=== PATIENT | female | born 1955 | race Caucasian/White ===

== ENCOUNTER → 2016-05-13 | Day surgery (SDC) | payer OTHER ==
[~2016-05-13] MED LIST: Bacitracin/Neomycin/Polymyxin B Oint 0.9 GM U/D Packet ONE; Bacitracin/Neomycin/Polymyxin B Oint 28.4 GM Tube ONE; Bupivacaine 0.5%/EPINEPHrine 1:200,000 30 ML SDV ONE; Dexamethasone 4 MG/ML SDV ONE; Glycopyrrolate 0.2 MG/ML 5 ML MDV ONE; Ketorolac 30 MG/ML SDV ONE; Lactated Ringers 1,000 ML IV SCH; Lactated Ringers 1,000 ML ONE; Midazolam 1 MG/ML 2 ML SDV ONE; Neostigmine Methylsulfate 10 MG/10 ML MDV ONE; Ondansetron 4 MG/2 ML SDV ONE; Propofol 200 MG/20 ML SDV ONE; Rocuronium 50 MG/5 ML Vial ONE; Scopolamine 1.5 MG Transdermal Patch ONE; Sodium Chloride 0.9% 5 ML Syringe FLUSH PRN; Succinylcholine 200 MG/10 ML MDV ONE; ceFAZolin 1 GM Vial ONE; fentaNYL 250 MCG/5 ML SDV ONE
--- NOTE | 2016-05-13 13:19 | PCM.OPNOTE ---
- General Post-Op/Procedure Note Date of Surgery/Procedure: 05/13/16 Operative Procedure(s): Cystocele repair Findings: Moderate cystocele and Urethrocoelewere found. Pre Op Diagnosis: Moderate cystocele and urethrocele. Anesthesia Technique: General ET tube Primary Surgeon: Tracy Pinto Complications: None Condition: Good Free Text/Narrative:: Preoperative diagnosis: Moderate Cystourethrocele, symptomatic. Patient has been having pelvic pain and slight difficulty with the initiation of urination. Postoperative diagnosis: As above. Procedure performed: Cystourethrocele repair Informed consent was obtained from the patient regarding this procedure. All possible complications were thoroughly discussed. These include infection, pain , bleeding ,narrowing at the vaginal introitus, failure of the surgery to correct the problem, dyspareunia and other unknown complications. Despite the complications, the patient decided to proceed. She was taken to the operating room where she was anesthetized by means of a general anesthetic. After that she was kept in the lithotomy position. Her genitals were prepped and draped in the usual fashion. A bimanual examination revealed an absent uterus and a moderate cystourethrocele. Mild rectocele present. A weighted speculum was placed in the posterior vaginal wall. The bladder was completely emptied using a catheter. The anterior surface of the vaginal wall was infiltrated with Marcaine solution1% with epinephrine. A vertical incision was made on the vaginal mucosa and the bladder was dissected off the vaginal mucosa extending from the urethra down to the end of the cystocele. The prevesical fascia was not very well defined. We then excised the extra vaginal mucosa on both sides. We approximated her irregular prevesical fascia in the middle with several interrupted sutures of 0 Polysorb. Good approximation was obtained. The bladder was well supported. Care was taken not to enter the urethra or the bladder. The vaginal mucosa was then closed using continuous 0 Vicryl suture. A catheter was placed the bladder. Clear urine was drained out. The catheter was left in place. A sterile Vaseline pack was also placed in the vagina. This will be removed prior to discharge. The patient tolerated the procedure. Blood loss was negligible. No operative complications were encountered. Sponge, needle and instrument count were correct. She was transferred to the recovery room in an excellent condition.
[2016-05-13 19:28] VITALS: BP 108/67
== END | disposition home or self-care (01) ==
LOC: KA.SDS 08:41
PROVIDERS: ATTEND Family Medicine
DX: N81.10 Cystocele, unspecified (principal); E78.2 Mixed hyperlipidemia; J45.20 Mild intermittent asthma, uncomplicated; Z90.49 Acquired absence of other specified parts of digestive tract; Z90.710 Acquired absence of both cervix and uterus; Z98.890 Other specified postprocedural states; Z88.1 Allergy status to other antibiotic agents; Z79.899 Other long term (current) drug therapy
CPT/HCPCS: 57240; A9270; J0330; J0690; J1100; J1885; J2250; J2405; J2704; J2710; J3010; J7120; J3490

== ENCOUNTER 2016-09-18 09:51 | Day surgery (SDC) | payer OTHER ==
[2016-09-18] MEDS ORDERED: Lactated Ringers 1,000 ML IV SCH (10:00)
[2016-09-18] MEDS ORDERED: Sodium Chloride 0.9% 5 ML Syringe FLUSH PRN (10:00)
[2016-09-18] MEDS ORDERED: fentaNYL 100 MCG/2 ML SDV ONE (10:29)
[2016-09-18] MEDS ORDERED: Midazolam 1 MG/ML 2 ML SDV ONE (10:29)
[2016-09-18] MEDS ORDERED: Propofol 200 MG/20 ML SDV ONE ×2 (10:29→10:54)
[2016-09-18] MEDS ORDERED: fentaNYL 100 MCG/2 ML SDV IV ONE (11:30)
[2016-09-18] MEDS ORDERED: Midazolam 1 MG/ML 2 ML SDV IV ONE (11:30)
[2016-09-18] MEDS ORDERED: Propofol 200 MG/20 ML SDV IV ONE (11:30)
[2016-09-18 14:47] VITALS: BP 110/60
--- NOTE | 2016-09-24 16:59 | PCM.OPNOTE ---
- General Post-Op/Procedure Note Date of Surgery/Procedure: 09/18/16 Operative Procedure(s): Colonoscopy. Pre Op Diagnosis: Rectal bleeding and screening Post-Op Diagnosis: Normal colonoscopy. Anesthesia Technique: MAC Primary Surgeon: Tracy Pinto Complications: None Condition: Good Free Text/Narrative:: Preoperative diagnosis: Abdominal pain and rectal bleeding. Screening colonoscopy. Postoperative diagnosis: As above Procedure performed: Colonoscopy Informed consent was obtained from the patient regarding this procedure. All possible complications were thoroughly discussed including the possible to perforation. Continuous EKG, oximetry monitoring and intermittent blood pressure and respiratory monitoring were performed throughout the procedure. The patient was given a Mac anesthesia. An Olympus video colonoscope was introduced in the rectum and advanced slowly all the way to the ileocecal junction. As the scope was withdrawn a careful examination of the colonic mucosa was performed. No abnormalities were discovered. There was no evidence of polyps, AV malformations, obstruction or malignancy. The patient tolerated procedure well. There were no operative complications. She was returned to the recovery room in excellent condition.
== END 2016-09-18 14:02 | disposition home or self-care (01) ==
LOC: KA.SDS 09:51
PROVIDERS: ATTEND Family Medicine
DX: Z12.11 Encounter for screening for malignant neoplasm of colon (principal); J45.20 Mild intermittent asthma, uncomplicated; K21.9 Gastro-esophageal reflux disease without esophagitis; E78.2 Mixed hyperlipidemia; Z88.1 Allergy status to other antibiotic agents; Z79.899 Other long term (current) drug therapy; Z90.710 Acquired absence of both cervix and uterus; Z98.890 Other specified postprocedural states; Z90.49 Acquired absence of other specified parts of digestive tract
CPT/HCPCS: 45378; J2250; J2704; J3010; J7120

== ENCOUNTER 2018-09-27 22:22 | Emergency (ER) | payer OTHER ==
--- NOTE | 2018-09-27 22:44 | EDM.PDOC ---
ED HPI GENERAL MEDICAL PROBLEM - General Chief Complaint: Back Pain or Injury Stated Complaint: lower back pain/nausea Time Seen by Provider: 09/27/18 22:37 Source of Information: Reports: Patient History Limitations: Reports: No Limitations - History of Present Illness INITIAL COMMENTS - FREE TEXT/NARRATIVE: While horseback riding this afternoon, fell from a horse landing on back striking large dirt lump or possible flat rock to the lumbar region. Was able to get back up and ride the horse seated in saddle back to the trailer, load horse, and drive home. She had increased swelling and pain to the area radiating to the left buttock. 800 mg ibuprofen was taken early evening. In route to the hospital experienced increased nausea and emesis 1. Denies nausea/emesis while laying supine Is mildly hypotensive in comparison to normal range blood pressures historically noted. Denies striking head nor any loss of consciousness but questions "whiplash effect". Mild pain to the paraspinal muscles on palpation examination. Denies any other areas of pain or stiffness. 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: NSAIDS lower back Pain Score (Numeric/FACES): 2 - Related Data Allergies Allergy/AdvReac Type Severity Reaction Status Date / Time doxycycline calcium Allergy itchy Verified 09/27/18 22:26 [From Vibramycin] doxycycline hyclate Allergy itchy Verified 09/27/18 22:26 [From Vibramycin] doxycycline monohydrate Allergy itchy Verified 09/27/18 22:26 [From Vibramycin] Home Meds: Home Meds Omeprazole 20 mg PO DAILY PRN 03/03/13 [History] Cetirizine [ZyrTEC] 10 mg PO DAILY 09/03/16 [History] Hydrocortisone [Anusol-Hc] 30 gm TP DAILY PRN 09/03/16 [History] Fluticasone/Salmeterol [Advair 250-50 Diskus] 1 puff INH DAILY PRN 09/27/18 [ History] Ketorolac [Toradol] 10 mg PO TID PRN 5 Days #15 tab 09/28/18 [Rx] Past Medical History Cardiovascular History: Reports: None Respiratory History: Reports: Asthma Gastrointestinal History: Reports: None Genitourinary History: Reports: None Musculoskeletal History: Reports: None Neurological History: Reports: None Psychiatric History: Reports: None Endocrine/Metabolic History: Reports: None Hematologic History: Reports: None - Past Surgical History HEENT Surgical History: Reports: None Cardiovascular Surgical History: Reports: None Respiratory Surgical History: Reports: None GI Surgical History: Reports: Appendectomy, Cholecystectomy Female Surgical History: Reports: Hysterectomy Neurological Surgical History: Reports: None Musculoskeletal Surgical History: Reports: None Other Musculoskeletal Surgeries/Procedures:: fx with surgery to R arm 2013 Oncologic Surgical History: Reports: None Dermatological Surgical History: Reports: None Social & Family History - Family History Family Medical History: Noncontributory - Caffeine Use Caffeine Use: Reports: Soda - Living Situation & Occupation Living situation: Reports: , with Spouse ED ROS GENERAL - Review of Systems Review Of Systems: See Below Constitutional: Reports: No Symptoms HEENT: Reports: No Symptoms Respiratory: Reports: No Symptoms Cardiovascular: Reports: No Symptoms Endocrine: Reports: No Symptoms GI/Abdominal: Reports: Nausea : Reports: No Symptoms Musculoskeletal: Reports: Neck Pain, Back Pain, Muscle Stiffness Skin: Reports: Bruising (Left buttock, left sacral region) Neurological: Reports: No Symptoms Psychiatric: Reports: No Symptoms Hematologic/Lymphatic: Reports: No Symptoms Immunologic: Reports: No Symptoms ED EXAM,LOWER BACK PAIN/INJURY - Physical Exam Exam: See Below Exam Limited By: No Limitations General Appearance: Alert, WD/WN, No Apparent Distress Ears: Normal External Exam (Negative for hemotympanum), Normal Canal, Hearing Grossly Normal, Normal TMs Nose: Normal Inspection, Normal Mucosa, No Blood Throat/Mouth: Normal Inspection, Normal Lips, Normal Teeth, Normal Gums, Normal Oropharynx, Normal Voice, No Airway Compromise Head: Atraumatic, Normocephalic Neck: Normal Inspection, Supple, Full Range of Motion, Tender Lateral ( Bilateral musculature paraspinal muscles) Respiratory/Chest: No Respiratory Distress, Lungs Clear, Normal Breath Sounds, No Accessory Muscle Use, Chest Non-Tender Cardiovascular: Normal Peripheral Pulses, Regular Rate, Rhythm, No Edema, No Murmur, No Rub GI/Abdominal: Normal Bowel Sounds, Soft, Non-Tender, No Organomegaly, No Distention, No Abnormal Bruit, No Mass. No: Distended, Rigid, Tender (Female) Exam: Deferred Rectal (Female) Exam: Deferred Back Exam: Muscle Spasm. No: CVA Tenderness (L), CVA Tenderness (R) Extremities: Normal Inspection, No Pedal Edema Neurological: Alert, Normal Mood/Affect, Normal Dorsiflexion, Normal Plantar Flexion Psychiatric: Normal Affect, Normal Mood Skin Exam: Warm, Dry, Ecchymosis (Left buttock, sacral region) Lymphatic: No Adenopathy Course - Vital Signs Last Recorded V/S: Last Vital Signs Temp 36.2 C 09/27/18 22:30 Pulse 61 09/28/18 00:28 Resp 14 09/28/18 00:28 BP 90/34 L 09/28/18 00:28 Pulse Ox 96 09/28/18 00:28 - Orders/Labs/Meds Orders: Active Orders 24 hr Category Date Time Status Lumbar Spine 2 or 3V [CR] Stat Exams 09/27/18 22:46 Ordered Sodium Chloride 0.9% [Normal Saline] 1,000 ml Med 09/28/18 00:13 Active IV .BOLUS Medication Orders Sodium Chloride (Normal Saline) 1,000 mls @ 999 mls/hr IV .BOLUS ONE Stop: 09/28/18 01:13 Last Admin: 09/28/18 00:20 Dose: 999 mls/hr Labs: Laboratory Tests 09/27/18 09/27/18 09/27/18 Range/Units 23:10 23:10 23:52 WBC 10.06 H (5.00-10.00) 10^3/uL RBC 3.69 L (3.80-5.50) 10^6/uL Hgb 11.6 L (12.0-16.0) g/dL Hct 33.6 L (37.0-47.0) % MCV 91.1 (82.0-92.0) fL MCH 31.4 H (27.0-31.0) pg MCHC 34.5 (32.0-36.0) g/dL RDW 12.8 (11.5-14.5) % Plt Count 298 (150-400) 10^3/uL MPV 10.2 (7.4-10.4) fL Immature Gran % (Auto) 0.1 (0.0-5.0) % Neut % (Auto) 77.5 H (50.0-70.0) % Lymph % (Auto) 13.7 L (20.0-40.0) % [place] % (Auto) 5.9 (2.0-8.0) % Eos % (Auto) 2.3 (1.0-3.0) % Baso % (Auto) 0.5 (0.0-1.0) % Immature Gran # (Auto) 0.01 (0.00-0.50) 10^3/uL Neut # (Auto) 7.80 H (2.50-7.00) 10^3/uL Lymph # (Auto) 1.38 (1.00-4.00) 10^3/uL [place] # (Auto) 0.59 (0.10-0.80) 10^3/uL Eos # (Auto) 0.23 (0.10-0.30) 10^3/uL Baso # (Auto) 0.05 (0.00-0.10) 10^3/uL Sodium 138 (136-145) mmol/L Potassium 4.7 (3.3-5.3) mmol/L Chloride 104 (98-115) mmol/L Carbon Dioxide 23.7 (21.0-32.0) mmol/L Anion Gap 15.0 (5-15) mmol/L BUN 20 (6-25) mg/dL Creatinine 0.72 (0.51-1.17) mg/dL Est Cr Clr Drug Dosing 73.42 mL/min Estimated GFR (MDRD) > 60 mL/min Glucose 150 H (75 - 99) mg/dL Calcium 8.8 (8.7-10.3) mg/dL Specimen Type Urincc Urine Color Yellow (YELLOW) Urine Appearance Clear (CLEAR) Urine pH 5.5 (5.0-9.0) Ur Specific [place] >= 1.030 (1.005-1.030) Urine Protein Negative (NEGATIVE) mg/dL Urine Glucose (UA) Negative (NEGATIVE) mg/dL Urine Ketones Negative (NEGATIVE) mg/dL Urine Occult Blood Negative (NEGATIVE) Urine Nitrite Negative (NEGATIVE) Urine Bilirubin Negative (NEGATIVE) Urine Urobilinogen 0.2 (0.2-1.0) E.U./dL Ur Leukocyte Esterase Trace H (NEGATIVE) Urine RBC 5-10 H (0-5) /HPF Urine WBC 5-10 H (0-5) /HPF Ur Epithelial Cells Many H /LPF Urine Bacteria Rare (NONE TO FEW) /HPF Hyaline Casts Moderate H (NEGATIVE) /LPF Urine Mucus Many H (NEGATIVE) /LPF Meds: Medications Generic Name Dose Route Start Last Admin Trade Name Freq PRN Reason Stop Dose Admin Sodium Chloride 1,000 mls @ 999 mls/hr 09/28/18 00:13 09/28/18 00:20 Normal Saline IV 09/28/18 01:13 999 mls/hr .BOLUS ONE Administration Discontinued Medications Generic Name Dose Route Start Last Admin Trade Name Freq PRN Reason Stop Dose Admin Ondansetron HCl 4 mg 09/27/18 23:23 09/27/18 23:27 Zofran IVPUSH 09/27/18 23:24 4 mg ONETIME ONE Administration Ondansetron HCl 4 mg 09/27/18 23:23 09/27/18 23:24 Zofran IVPUSH 09/27/18 23:24 Not Given ONETIME ONE - Radiology Interpretation Free Text/Narrative:: 3 views lumbar spine. I do not see any obvious fracture nor dislocation with mild arthritic changes. Over read pending read official report reviewed and discussed with Apryl and her . No acute fracture nor dislocation. Spondylosis without acute abnormality official impression Mild osteopenia. Grade 1 maico listhesis of L5 on S1 secondary to bilateral pars defect chronic in nature Mild degenerative dextroscoliosis apex at L3 Diffuse spondylitic changes with diffuse disc space narrowing, osteophyte formation and degenerative endplate sclerosis. Diffuse facet joint arthropathy with secondary bilateral neural foramina narrowing. No fracture or dislocation is seen. No aggressive lytic or blastic bony lesion is noted. Metallic clips right upper quadrant prior cholecystectomy. Impression: spondylosis without acute abnormality - Re-Assessments/Exams Free Text/Narrative Re-Assessment/Exam: 09/27/18 23:37 Mild nausea improved with IV Zofran Free Text/Narrative Re-Assessment/Exam: 09/28/18 00:31 Mild nausea with repeat hypotension monitored pain same. Laboratory analysis reviewed showing significant concentration to urine with acknowledgment of poor water intake the past 24-48 hours. We'll infuse normal saline 1000 mL and reassess 09/28/18 00:54 Fluid infusing 450ml slight pain to buttock region stated. No/minimal nausea, No other complaints of pain. Heart sounds S1-S2 no noted murmur, Breath sounds remain clear, abd soft. Departure - Departure Time of Disposition: 01:48 Disposition: Home, Self-Care 01 Condition: Good Clinical Impression: Lumbar contusion, Nausea, Fall from horse, Dehydration symptoms, Abnormal urine findings, Cervical paraspinous muscle spasm - Discharge Information *PRESCRIPTION DRUG MONITORING PROGRAM REVIEWED*: Not Applicable *COPY OF PRESCRIPTION DRUG MONITORING REPORT IN PATIENT LUPIS: Not Applicable Forms: ED Department Discharge - Problem List & Annotations (1) Sacral contusion SNOMED Code(s): 461205321 Code(s): S30.0XXA - CONTUSION OF LOWER BACK AND PELVIS, INITIAL ENCOUNTER Status: Acute Priority: High Onset Date: ~09/27/18 Qualifiers: Encounter type: initial encounter Qualified Code(s): S30.0XXA - Contusion of lower back and pelvis, initial encounter (2) Lumbar contusion SNOMED Code(s): 860807290 Code(s): S30.0XXA - CONTUSION OF LOWER BACK AND PELVIS, INITIAL ENCOUNTER Status: Acute Priority: High Onset Date: ~09/27/18 Qualifiers: Encounter type: initial encounter Qualified Code(s): S30.0XXA - Contusion of lower back and pelvis, initial encounter (3) Nausea SNOMED Code(s): 675110359 Code(s): R11.0 - NAUSEA Status: Acute Priority: Medium Onset Date: ~ (4) Cervical paraspinous muscle spasm SNOMED Code(s): 854040671 Code(s): M62.838 - OTHER MUSCLE SPASM Status: Acute Priority: Medium Onset Date: ~09/27/18 (5) Dehydration symptoms SNOMED Code(s): 4713346 Code(s): R63.8 - OTHER SYMPTOMS AND SIGNS CONCERNING FOOD AND FLUID INTAKE Status: Acute Priority: Medium Onset Date: ~09/28/18 (6) Abnormal urine findings SNOMED Code(s): 415848053 Code(s): R82.90 - UNSPECIFIED ABNORMAL FINDINGS IN URINE Status: Acute Priority: Medium Onset Date: ~09/28/18 Annotation/Comment:: Concentration with hyleen casts. Elevated specific gravity (7) Fall from horse SNOMED Code(s): 855366614 Code(s): V80.010A - ANIML-RIDR INJURED BY FALL FR HORSE IN NONCLSN ACC, INIT Status: Acute Priority: High Qualifiers: Encounter type: initial encounter Qualified Code(s): V80.010A - Animal- rider injured by fall from or being thrown from horse in noncollision accident, initial encounter - Problem List Review Problem List Initiated/Reviewed/Updated: Yes - My Orders Last 24 Hours: My Active Orders 09/27/18 22:46 Lumbar Spine 2 or 3V [CR] Stat 09/28/18 00:13 Sodium Chloride 0.9% [Normal Saline] 1,000 ml IV .BOLUS - Assessment/Plan Last 24 Hours: My Active Orders 09/27/18 22:46 Lumbar Spine 2 or 3V [CR] Stat 09/28/18 00:13 Sodium Chloride 0.9% [Normal Saline] 1,000 ml IV .BOLUS Plan: Home and rest in a position of comfort. You may use heat and/or ice to the area to help with her pain. Prescription will be sent here pharmacy for ketorolac (Toradol) 10 mg to be taken once every 8 hours for pain and inflammation. You may also use Tylenol without but avoid using any other nonsteroidal anti- inflammatories such as ibuprofen or naproxen while using the ketorolac. If you do not start to show improvement in 24-48 hours please consider clinic appointment with your PCP as able to schedule. Call or return to the emergency department if symptoms should severely worsens. If steady improvement is noted recheck at your convenience.
[2018-09-27] MEDS ORDERED: Ondansetron 4 MG/2 ML SDV IVPUSH ONE ×2 (23:23)
[2018-09-27 23:49] LABS: CHLORIDE,CL 104 mmol/L (98-115); SODIUM,NA 138 mmol/L (136-145)
[2018-09-28] MEDS ORDERED: Sodium Chloride 0.9% 1,000 ML IV ONE (00:13)
[2018-09-28] MEDS ORDERED: Ketorolac 60 MG/2 ML SDV IM ONE (01:25)
[2018-09-28 01:30] VITALS: BP 93/28; PULSE 67
[2018-09-28] MEDS ORDERED: Ondansetron 4 MG Tab.DIS PO PRN (01:37)
--- NOTE | 2018-09-28 08:46 | CR ---
[id number] RAD/RAD Lumbar Spine 2-3V EXAM: LUMBAR SPINE 3 VIEWS INDICATION: Pain after a fall. COMPARISON: None. DISCUSSION: Grade 1 L5-S1 spondylolisthesis and borderline listhesis at L4-L5. Slight convex right curvature centered in the lower lumbar spine. The vertebral bodies are otherwise normal in height and alignment with no acute fracture identified. Mild degenerative disc disease at L4-L5 and moderate changes at L5-S1. Bilateral facet arthropathy from at least L3-L4 through L5-S1. IMPRESSION: 1. Mild to moderate lumbar spondylosis. 2. Grade 1 L5-S1 spondylolisthesis. Conrad Martinez MD 09/28/18 0845 Thank you for allowing us to participate in the care of your patient.
== END 2018-09-28 02:20 | disposition home or self-care (01) ==
LOC: KA.ED 22:22
DX: S30.0XXA Contusion of lower back and pelvis, initial encounter (principal); R11.0 Nausea; R82.90 Unspecified abnormal findings in urine; R63.8 Other symptoms and signs concerning food and fluid intake; M62.838 Other muscle spasm; J45.909 Unspecified asthma, uncomplicated; Z79.899 Other long term (current) drug therapy; Z88.1 Allergy status to other antibiotic agents; V80.010A Animal-rider injured by fall from or being thrown from horse in noncollision accident, initial encounter
CPT/HCPCS: 72100; 80048; 81001; 85025; 96361; 96374; 96375; 99283; A9270; J1885; J2405; J7030; 99284

== ENCOUNTER 2023-04-01 07:00 | Day surgery (SDC) | payer MEDICARE, OTHER ==
[~2023-04-01 07:00] MED LIST changes: -Bacitracin/Neomycin/Polymyxin B Oint 0.9 GM U/D Packet ONE; -Bacitracin/Neomycin/Polymyxin B Oint 28.4 GM Tube ONE; -Bupivacaine 0.5%/EPINEPHrine 1:200,000 30 ML SDV ONE; -Dexamethasone 4 MG/ML SDV ONE; -Glycopyrrolate 0.2 MG/ML 5 ML MDV ONE; -Ketorolac 30 MG/ML SDV ONE; -Lactated Ringers 1,000 ML IV SCH; -Lactated Ringers 1,000 ML ONE; -Midazolam 1 MG/ML 2 ML SDV ONE; -Neostigmine Methylsulfate 10 MG/10 ML MDV ONE; -Ondansetron 4 MG/2 ML SDV ONE; -Propofol 200 MG/20 ML SDV ONE; -Rocuronium 50 MG/5 ML Vial ONE; -Scopolamine 1.5 MG Transdermal Patch ONE; +Sodium Chloride 0.9% 10 ML Syringe FLUSH PRN; -Sodium Chloride 0.9% 5 ML Syringe FLUSH PRN; -Succinylcholine 200 MG/10 ML MDV ONE; -ceFAZolin 1 GM Vial ONE; -fentaNYL 250 MCG/5 ML SDV ONE
[2023-04-01] MEDS: Lactated Ringers 1,000 ML IV SCH (07:16)
[2023-04-01] MEDS ORDERED: Lidocaine 2% 100 MG/5 ML Syringe ONE (07:19)
[2023-04-01] MEDS ORDERED: Propofol 200 MG/20 ML SDV ONE (07:19)
[2023-04-01 11:24] VITALS: BP 140/75; PULSE 79
== END 2023-04-01 09:40 | disposition home or self-care (01) ==
LOC: KA.SDS 07:00
PROVIDERS: ATTEND Family Medicine
DX: K29.70 Gastritis, unspecified, without bleeding (principal); K21.9 Gastro-esophageal reflux disease without esophagitis; K44.9 Diaphragmatic hernia without obstruction or gangrene; E78.2 Mixed hyperlipidemia; J45.20 Mild intermittent asthma, uncomplicated; Z79.899 Other long term (current) drug therapy
CPT/HCPCS: 43239; J2704; J7120; 00731; J3490

== ENCOUNTER 2025-01-11 08:20 | Day surgery (SDC) | payer MEDICARE, OTHER ==
[2025-01-11] MEDS ORDERED: Propofol 200 MG/20 ML SDV ONE (08:40)
[2025-01-11] MEDS: Lactated Ringers 1,000 ML IV SCH (08:40)
[2025-01-11] MEDS ORDERED: Midazolam 1 MG/ML 2 ML SDV ONE (08:40)
[2025-01-11] MEDS ORDERED: Sodium Chloride 0.9% 10 ML Syringe FLUSH PRN (09:00)
[2025-01-11 11:43] VITALS: BP 135/69; PULSE 73
== END 2025-01-11 11:30 | disposition home or self-care (01) ==
LOC: KA.SDS 08:20
PROVIDERS: ATTEND Family Medicine
DX: K57.30 Diverticulosis of large intestine without perforation or abscess without bleeding (principal); K64.8 Other hemorrhoids; K62.89 Other specified diseases of anus and rectum; R10.9 Unspecified abdominal pain; R19.4 Change in bowel habit; I10 Essential (primary) hypertension; Z88.8 Allergy status to other drugs, medicaments and biological substances; Z79.899 Other long term (current) drug therapy
CPT/HCPCS: 00811; J2250; J2704; J7120